=== PATIENT | female | born 1975 | race Caucasian/White ===

== ENCOUNTER 2017-05-24 14:35 | Emergency (ER) | payer MEDICAID ==
[2017-05-24] MEDS ORDERED: oxyCODONE/Acetamin 5/325 MG* TAB PO ONE (16:20)
--- NOTE | 2017-05-24 16:46 | RAD ---
INDICATION: RIGHT wrist pain post fall. COMPARISON: August 11, 2014 MRI. TECHNIQUE: AP, lateral, and oblique views RIGHT wrist. REPORT: Comminuted fractures the distal metaphysis of the radius with disproportionate dorsal impaction and resulting dorsal tilt of the distal radioarticular surface. Suggestion of intra-articular extension at the distal radial ulnar and radiocarpal joints without significant articular surface discontinuity or incongruity at the radiocarpal joint. Suggestion of a small ulnar styloid avulsion fracture with up to 0.4 cm displacement. Negative for dislocation. Soft tissue swelling about the distal forearm and wrist. IMPRESSION: Colles' fracture with probable intra-articular extension at the radiocarpal joint and distal radioulnar joint as well as small associated ulnar styloid avulsion.
[2017-05-24] MEDS ORDERED: Lidocaine 1% INJ* 10 MG/ML 30 ML SDV INJ ONE (17:02)
[2017-05-24] MEDS ORDERED: Lidocaine 1%* 5 ML VIAL ONE (17:20)
--- NOTE | 2017-05-24 17:56 | ED ---
Upper Extremity Pain - HPI Summary HPI Summary: 41F presents with right wrist injury today. She states the swelling she is not slipped on the black ice and fell on her right wrist. She denies any previous injury to right wrist but previously broken her left wrist. She is right- handed. She denies any numbness or chilling. She states her fingers has been swelling. The pain is greatest on the radius aspect of her wrist. She hasn't taking anything for pain. She is currently unemployed. She has no medical conditions. - History of Current Complaint Chief Complaint: EDExtremityUpper Stated Complaint: FALL/RT WRIST INJURY Time Seen by Provider: 05/24/17 15:50 Hx Last Menstrual Period: 05/25/13 - Allergies/Home Medications Allergies/Adverse Reactions: Allergies Allergy/AdvReac Type Severity Reaction Status Date / Time Erythromycin AdvReac Intermediate N/V Verified 05/24/17 15:24 [Erythromycin] PMH/Surg Hx/FS Hx/Imm Hx Endocrine/Hematology History: Denies: Hx Diabetes, Hx Thyroid Disease Cardiovascular History: Denies: Hx Hypercholesterolemia, Hx Hypertension, Hx Pacemaker/ICD, Hx Peripheral Vascular Disease Musculoskeletal History: Denies: Hx Arthritis, Hx Osteoporosis Sensory History: Denies: Hx Cataracts, Hx Contacts or Glasses, Hx Glaucoma, Hx Hearing Aid Opthamlomology History: Denies: Hx Cataracts, Hx Contacts or Glasses, Hx Glaucoma Neurological History: Reports: Hx Headaches Denies: Hx Seizures, Hx Transient Ischemic Attacks (TIA) Psychiatric History: Reports: Hx Anxiety, Hx Depression, Hx Substance Abuse Denies: Hx Panic Disorder - Surgical History Surgery Procedure, Year, and Place: X4, PARTIAL CERVICAL REMOVAL Infectious Disease History: No Infectious Disease History: Reports: Hx Hepatitis - HEPATITIS C Denies: History Other Infectious Disease, Traveled Outside the [place] in Last 30 Days - Family History Known Family History: Positive: Diabetes - Social History Alcohol Use: None Hx Substance Use: No Substance Use Type: Reports: Heroin Substance Use Comment - Amount & Last Used: hx of opiate abuse per pt. Hx Tobacco Use: Yes Smoking Status (MU): Heavy Every Day Tobacco Smoker Type: Cigarettes Amount Used/How Often: 1/2 PPD Review of Systems Negative: Fever Negative: Chest Pain Negative: Shortness Of Breath Positive: Myalgia - right wrist All Other Systems Reviewed And Are Negative: Yes Physical Exam Triage Information Reviewed: Yes Vital Signs On Initial Exam: Initial Vitals Temp Pulse Resp BP Pulse Ox 98.5 F 84 18 118/84 98 05/24/17 14:54 05/24/17 14:54 05/24/17 14:54 05/24/17 14:54 05/24/17 14:54 Vital Signs Reviewed: Yes Appearance: Positive: Well-Appearing Skin: Positive: Warm, Dry Head/Face: Positive: Normal Head/Face Inspection Eyes: Positive: Normal, Conjunctiva Clear Respiratory/Lung Sounds: Positive: Clear to Auscultation, Breath Sounds Present Cardiovascular: Positive: Normal, RRR Musculoskeletal: Positive: Limited @ - right wrist, Edema Right - wrist with deformity, Other - neg snuff box tenderness, tenderness over radial aspect of wrist, good pulses, capillary refill<2 secs, sensation grossly intact Neurological: Positive: Normal Psychiatric: Positive: Normal Procedures - Splinting Location: left wrist Diagnostics - Vital Signs Vital Signs Temp Pulse Resp BP Pulse Ox 05/24/17 16:31 18 05/24/17 14:54 98.5 F 84 18 118/84 98 - Laboratory Lab Statement: Any lab studies that have been ordered have been reviewed, and results considered in the medical decision making process. - Radiology wrist Xray Interpretation: Positive (See Comments) - IMPRESSION: Colles' fracture with probable intra-articular extension at the radiocarpal joint and distal radioulnar joint as well as small associated ulnar styloid avulsion. Radiology Interpretation Completed By: Radiologist Course/Dx - Course Course Of Treatment: 41F presents with right wrist injury today. She states the swelling she is not slipped on the black ice and fell on her right wrist. She denies any previous injury to right wrist but previously broken her left wrist. She is right-handed. She denies any numbness or chilling. She states her fingers has been swelling. The pain is greatest on the radius aspect of her wrist. She hasn't taking anything for pain. She is currently unemployed. She has no medical conditions. On exam neurovascularly intact. Deformity and tenderness of her right radius. X-ray shows Colles' fracture. performed hematoma block and applied some traction to wrist and placed in volar splint per Dr. Alex. Patient will follow up with Dr. Alex. Patient understands and agrees with plan. - Diagnoses Differential Diagnosis/HQI/PQRI: Positive: Fracture (Closed), Strain, Sprain Provider Diagnoses: Right wrist fracture Discharge - Discharge Plan Condition: Good Disposition: HOME Prescriptions: oxyCODONE/Acetamin 5/325 MG* [Percocet 5/325 TAB*] 1 tab PO Q6H PRN #18 tab MDD 4 PRN Reason: Pain Patient Education Materials: Wrist Fracture in Adults (ED) Referrals: No Primary Care Phys,NOPCP [Primary Care Provider] - Shiraz Alex MD [Medical Doctor] - Additional Instructions: Keep elbow in sling as needed Keep splint on area and keep dry Call ortho office tomorrow to set up appointment for follow up Use ibuprofen for pain every 6 hours and use narcotic for breakthrough pain Ice, elevate Return to ED if develop numbness or tingling or any new or worsening symptoms
[2017-05-24 18:58] VITALS: BP 122/80
== END 2017-05-24 18:57 | disposition home or self-care (01) ==
LOC: ED 14:35
DX: S52.531A Colles' fracture of right radius, initial encounter for closed fracture (principal); F17.210 Nicotine dependence, cigarettes, uncomplicated; W01.0XXA Fall on same level from slipping, tripping and stumbling without subsequent striking against object, initial encounter; Y92.9 Unspecified place or not applicable; F41.9 Anxiety disorder, unspecified; F32.9 Major depressive disorder, single episode, unspecified; B19.20 Unspecified viral hepatitis C without hepatic coma
CPT/HCPCS: 99282; A9270-GY

== ENCOUNTER → 2017-05-28 15:14 | Day surgery (SDC) | payer OTHER ==
[~2017-05-28 15:14] MED LIST: Acetaminophen IV 1GM/100ML * 1,000 MG/100 ML VIAL IVPB PRN; Acetaminophen IV 1GM/100ML * 100 ML ONE; Buffered Lidocaine 0.9% SYRIN* 5 ML/SYR SYRINGE ONE; Bupivacaine 0.25% SDV* 30 ML ONE; Dexamethasone IV* 4 MG/ML 1 ML (4 MG) ONE; DiMENhydriNATE IV* 50 MG/ML VIAL IV PUSH PRN; Famotidine IV* 10 MG/ML 2 ML (20 mg) ONE; HYDROmorphone INJ* 1 MG/ML CARPUJECT SYRINGE ONE; KETAMINE HCL* 50 MG/ML 10 ML VIAL ONE; Midazolam* 1 MG/ML 2 ML VIAL (2 MG) ONE; Naloxone* 0.4 MG/ML 1 ML VIAL IV PRN; fentaNYL* 50 MCG/ML 2 ML VIAL (100 MCG VIAL) ONE
[2017-05-28] MEDS: fentaNYL* 50 MCG/ML 2 ML VIAL (100 MCG VIAL) IV PRN ×3 (19:30→19:55)
[2017-05-28 20:08] VITALS: BP 160/43
[2017-05-28] MEDS: HYDROmorphone INJ* 1 MG/ML CARPUJECT SYRINGE IV PRN ×2 (20:18→20:28)
--- NOTE | 2017-05-31 09:18 | OP ---
DATE OF OPERATION: 05/28/17 [facility] DATE OF : 73. SURGEON: Shiraz Alex MD. PENAL OFFICER: GEORGIE Linares. An learning and development assistant was needed for the entirety of the procedure to aid in position of the arm and retraction. ANESTHESIOLOGIST: Dr. Murphy. ANESTHESIA: General. PRE-OP DIAGNOSIS: Right displaced metaphyseal distal radius fracture. POST-OP DIAGNOSIS: Right displaced metaphyseal distal radius fracture. OPERATIVE PROCEDURE: Open reduction and internal fixation of right displaced metaphyseal distal radius fracture. INDICATIONS: Penny is a 41-year-old female with a displaced right metaphyseal distal radius fracture. She has history of some substance abuse and difficult social circumstances. We talked about her options. We thought the best thing to do is to go and stabilize the bone, so that it could heal in a good position. She understood the risks and benefits. She wants to proceed. ESTIMATED BLOOD LOSS: 2 mL. COMPLICATIONS: None. FINDINGS: As expected. DESCRIPTION OF PROCEDURE: Penny was seen in the preoperative holding area. The correct side, site, and procedure were identified. We came back to the operating room. The arm was prepped and draped in the usual fashion. A time- out was performed. The arm was exsanguinated with the Esmarch and the tourniquet was inflated to 250 mmHg. Skin incision was made over the distal FCR tendon. Dissection was carried down and the sheath was opened and the FCR tendon was retracted ulnarly. The subsheath was then opened. The pronator quadratus was released off the radial margin of the radius and T'd back distally preserving the distal volar extrinsic capsular ligaments. Ten pounds of retraction were placed. The fracture was reduced. A plate was brought in and pinned into place. The oblong hole more proximally was filled with a 2.4 cortical screw. Again, this was a Synthes variable angle distal radium plate. The distal locking screws were placed. Two more cortical screws were placed proximally. The traction was let off. Final fluoroscopic imaging showed anatomic reduction and good plate screw placement. The wound was irrigated out. The pronator quadratus was repaired with 3-0 Vicryl sutures. Subcutaneous tissue was reapproximated with 3-0 Vicryl sutures and the skin was closed with 4-0 Monocryl and Steri- Strips. Wound was irrigated and 0.25% Marcaine was infiltrated. The wound was dressed with Xeroform, 4x4s, sterile Webril, and a cockup wrist splint was applied. The patient was then awoken up and taken to the recovery room in stable condition. [id number]/[facility] #: [id number] DANNIELLE
--- NOTE | 2017-06-01 10:26 | RAD ---
INDICATION: ORIF RIGHT wrist. COMPARISON: May 24, 2017 radiographs. TECHNIQUE: 5 seconds fluoroscopy. FINDINGS: Spot images document placement of a volar cortical plate and screws across the comminuted distal radial fracture. IMPRESSION: Procedural fluoroscopy. CPT II Codes: 6045F
== END | disposition home or self-care (01) ==
LOC: OREAST 15:14
PROVIDERS: ATTEND Orthopaedic Surgery Hand Surgery
DX: S52.501A Unspecified fracture of the lower end of right radius, initial encounter for closed fracture (principal); W00.0XXA Fall on same level due to ice and snow, initial encounter; Y92.9 Unspecified place or not applicable; F17.210 Nicotine dependence, cigarettes, uncomplicated; F11.20 Opioid dependence, uncomplicated; B18.2 Chronic viral hepatitis C; F41.8 Other specified anxiety disorders
CPT/HCPCS: 36415; 76000; 86703; C1713; C1776; J1100; J1170; J2250; J3010

== ENCOUNTER 2018-02-18 05:09 | Emergency (ER) | payer SELFPAY ==
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
[2018-02-18] MEDS ORDERED: Buprenorp/Nalox 8-2 MG SL TAB.SL PO ONE (09:59)
[2018-02-18] MEDS ORDERED: Methadone TAB* 10 MG PO ONE (10:41)
[2018-02-18 10:47] VITALS: BP 122/83
[2018-02-18] MEDS ORDERED: oxyCODONE TAB* 5 MG TAB PO ONE (11:18)
== END 2018-02-18 12:13 | disposition left against medical advice (07) ==
LOC: ED 05:09
DX: T76.21XA Adult sexual abuse, suspected, initial encounter (principal); F17.210 Nicotine dependence, cigarettes, uncomplicated
CPT/HCPCS: 99282; A9270-GY